=== PATIENT | male | born 1985 | race Caucasian/White ===

== ENCOUNTER 2016-09-12 00:39 | Emergency (ER) | payer SELFPAY ==
[~2016-09-12 00:39] MED LIST: ANTI-FUNGAL15 GM TP; FLEXERIL10 MG PO; HYCODAN60 ML 5MG/ PO; IBUPROFEN PO; IBUPROFEN800 MG PO; NO MEDICATIONS; PEN-VEE K PO; POLYTRIM EYE DR10 ML OU; TRAMADOL HCL50 M2 PO; ULTRAM PO; [UNRECOGNIZED DRUG - OTHER]
== END 2016-09-12 02:46 | disposition home or self-care (01) ==
LOC: SED 00:39
DX: J01.00 Acute maxillary sinusitis, unspecified (principal); F17.200 Nicotine dependence, unspecified, uncomplicated
CPT/HCPCS: 87651; 99282

== ENCOUNTER 2016-10-09 19:37 | Emergency (ER) | payer OTHER ==
--- NOTE | ~2016-10-09 | CR156 ---
[facility] A Service of [facility] RADIOLOGY TEXT RESULTS PATIENT: ANDREA AQUINO LOCATION: [place] : 87 UNIT #: [id number] AGE: [address]: DONALD WILCOX APRN SEX: M ORDER DR: [id number] [facility]. [place], [place] [address] [id number] MR#: [id number] Acc #: [id number] NAME: ANDREA AQUINO : 1985 SEX: M STUDY DATE/TIME: 10/09/2016 19:54 UNIT: [facility] ROOM: STUDY DESCRIPTION: CR Humerus Min 2 View Lt Attending Physician: Donald Wilcox Aprn Ordering Physician: Ed Alfredo Sloan M.D. Primary Care Physician: Primary Care Physician No MEDICAL IMAGING REPORT This report is preliminary unless electronic signature is present EXAM Left humerus, 2 views COMPARISON Radiographs of the left forearm and elbow on the same date. INDICATION 31-year-old male with left upper arm pain after falling while playing basketball today. FINDINGS Calcified granuloma noted in the left lung. Evaluation of the distal humerus is limited due to motion and nonstandard positioning. However on comparison radiographs of the left elbow on the same date the distal humerus is intact and anatomically aligned at the elbow. There is however, a comminuted appearing fracture involving the radial head extending into the articular surface. IMPRESSION 1. No evidence of acute fracture or dislocation of the left humerus. 2. Intraarticular mildly comminuted nondisplaced fracture of the radial head, acute in nature. Dictated by... Weston Rivera M.D. THIS IS AN ELECTRONICALLY VERIFIED REPORT Weston Rivera M.D. at 10/14/2016 8:26 PM Owen TD: 10/10/2016 00:35 JOB #: [id number] [facility] A Service [facility] RADIOLOGY TEXT RESULTS PATIENT: ANDREA AQUINO LOCATION: [facility] : 86 UNIT #: [id number] AGE: [address]: DONALD WILCOX APRN SEX: M ORDER DR: MEDICAL IMAGING REPORT Page 1 of 1 COPY
--- NOTE | ~2016-10-09 | CR132 ---
[facility] A Service of [facility] RADIOLOGY TEXT RESULTS PATIENT: ANDREA AQUINO LOCATION: [facility] : 86 UNIT #: [id number] AGE: [address]: DONADL WILCOX APRN SEX: M ORDER DR: [id number] [facility] [address] [place], [place] [address] [id number] E MR#: [id number] Acc #: [id number] NAME: ANDREA AQUINO : 1985 SEX: M STUDY DATE/TIME: 10/09/2016 19:55 UNIT: [facility] ROOM: STUDY DESCRIPTION: CR Forearm 2 View Lt Attending Physician: Donald Wilcox Aprn Ordering Physician: Ed Alfredo Sloan M.D. Primary Care Physician: No Primary Care Physician MEDICAL IMAGING REPORT This report is preliminary unless electronic signature is present EXAM Left forearm, 2 views. COMPARISON Three views of the left elbow and two views left humerus on the same date. INDICATIONS 31-year-old male with left forearm pain after falling while playing basketball today. FINDINGS There is a nondisplaced fracture, with intraarticular extension passing through the radial head. Bones of the forearm are otherwise intact. No evidence of dislocation. Elbow effusion again noted. IMPRESSION Acute intraarticular nondisplaced fracture, with mild comminution at the radial head. No dislocation. Dictated by... Weston Rivera M.D. THIS IS AN ELECTRONICALLY VERIFIED REPORT Weston Rivera M.D. at 10/14/2016 8:27 PM Shayla TD: 10/10/2016 00:46 JOB #: [id number] MEDICAL IMAGING REPORT Page 1 of 1 COPY
--- NOTE | ~2016-10-09 | CR93 ---
[facility] A Service of [facility] RADIOLOGY TEXT RESULTS PATIENT: ANDREA AQUINO LOCATION: [facility] : 87 UNIT #: [id number] AGE: [address]: DONALD RAY APRN SEX: M ORDER DR: [id number] [facility]. [place], [place] [address] [id number] E MR#: [id number] Acc #: [id number] NAME: ANDREA AQUINO : 1985 SEX: M STUDY DATE/TIME: 10/09/2016 19:55 UNIT: [facility] ROOM: STUDY DESCRIPTION: CR Elbow Min 3 Views Lt Attending Physician: Donald Ray Aprn Ordering Physician: Ed Doctor [id number] [facility] Primary Care Physician: No Primary Care Physician MEDICAL IMAGING REPORT This report is preliminary unless electronic signature is present EXAM Left elbow, 3 views COMPARISON Two views of the left humerus and two-view left forearm on the same date. INDICATION A 31-year-old male with left elbow pain after falling while playing basketball today. FINDINGS There is an anterior Sail sign consistent with an elbow effusion. The elbow is anatomically aligned. Best appreciated on radiographs of the forearm and humerus on the same date. There is a comminuted nondisplaced intraarticular fracture of the radial head. This is seen only AP views of the elbow on the current exam as well. IMPRESSION 1. Acute nondisplaced, mildly comminuted intraarticular fracture of the radial head with associated elbow effusion. 2. No dislocation. Dictated by... Weston Rivera M.D. THIS IS AN ELECTRONICALLY VERIFIED REPORT Weston Rivera M.D. at 10/14/2016 8:26 PM MIKAELA/junior TD: 10/10/2016 00:43 JOB #: [id number] [facility] A Service [facility] RADIOLOGY TEXT RESULTS PATIENT: ANDREA QAUINO LOCATION: [facility] : 87 UNIT #: [id number] AGE: [address]: DONALD RAY APRN SEX: M ORDER DR: MEDICAL IMAGING REPORT Page 1 of 1 COPY
== END 2016-10-09 21:38 | disposition home or self-care (01) ==
LOC: CFTX 19:37 → CED 19:37 → CFTX 20:35
DX: S52.125A Nondisplaced fracture of head of left radius, initial encounter for closed fracture (principal); F17.210 Nicotine dependence, cigarettes, uncomplicated; W19.XXXA Unspecified fall, initial encounter; Y93.67 Activity, basketball; Y92.39 Other specified sports and athletic area as the place of occurrence of the external cause
CPT/HCPCS: 29105; 73060; 73080; 73090; 99284

== ENCOUNTER 2016-11-02 01:41 | Emergency (ER) | payer OTHER | END 2016-11-02 02:09 | disposition home or self-care (01) | LOC: SED 01:41 | DX: J32.9 Chronic sinusitis, unspecified (principal); F17.200 Nicotine dependence, unspecified, uncomplicated | CPT/HCPCS: 99283 ==